=== PATIENT | female | born 1990 | race African-American/Black ===

== ENCOUNTER 2017-02-13 13:23 | Emergency (ER) | payer OTHER ==
[~2017-02-13] VITALS: Ht 180.3 cm; Wt 94.0 kg
[~2017-02-13 13:23] MED LIST: ALBU6.7H INH; AMOX500T PO; PRED20 PO; Z.0.NO CURRENT MEDS
[2017-02-13 13:25] VITALS: BP 140/84; PULSE 78; RESP 20; TEMP 97.5; O2SAT 98
--- NOTE | 2017-02-13 13:35 | PD ---
Physical Exam Time Seen by Provider: 13:31 Narrative 26 year old female here for evaluation after contaminated exposure. While working at [employer] her right index finger was puncture with a contaminated hollow bore needle. She reports she immediately milked the area & washed the finger. 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 Patient seen at triage desk. VS reviewed. Patient waiting bed placement. Data Data Last Documented VS Vital Signs Date Time Temp Pulse Resp B/P Pulse Ox O2 Delivery O2 Flow Rate FiO2 02/13/17 13:25 97.5 78 20 140/84 98 Room Air MDM Supervised Visit with ELEUTERIO: Marcela Storey Feb 13, 2017 13:35
--- NOTE | 2017-02-13 13:59 | PD ---
HPI . needle stick earlier today Chief Complaint: Exposure to Blood/Body Fluids Time Seen by Provider: 13:58 Travel History International Travel<30 days: No Contact w/Intl Traveler<30days: No Traveled to known affect area: No History of Present Illness HPI 26-year-old female with history of hypertension and borderline diabetes here after a needlestick earlier today while working at [employer] on a surgical case. Patient tells me that they were performing a lipoma removal on a patient , who the surgeon states is free of any known communicable disease and in good health. Patient tells me that she accidentally pricked her right index finger with a suture needle, specifically a 3-0 Vicryl. Patient says that blood initially did not come out of the site and had to be milked out. She reports immediately washing and cleaning the area. She didn't think much of it, but was told to come to the emergency department for further evaluation. Patient admits to being a hypochondriac and is considering taking postexposure prophylactic medications until she finds out the actual status of the source patient. [facility] Past Medical History Asthma: Yes Respiratory: Yes (asthma) ?: Not LMP: 02/11/17 : 1 Para: 1 : 0 Dilation and Curettage (D&C): No Past Surgical History Section: Yes Gynecologic Surgery: Yes Hysterectomy: Yes Social History Alcohol Use: No Tobacco Use: No Substance Use: No Allergies-Medications (Allergen,Severity, Reaction): Uncoded Allergies: SHELL FISH (Allergy, Intermediate, HIVES, 03/26/14) Reported Meds & Prescriptions Reported Meds & Active Scripts Active Kaletra (Lopinavir/Ritonavir) 200-50 Mg Tab 2 Tab PO Q12HR Fill this prescription for a 23 day supply of Kaletra ONLY if advised to do so by either [facility] OR the Emergency Department. Zidovudine 300 Mg Tab 300 Mg PO Q12HR 23 Days Lamivudine 150 Mg Tab 150 Mg PO BID 23 Days Kaletra (Lopinavir/Ritonavir) 200-50 Mg Tab 2 Tab PO Q12HR 5 Days Fill this 5 day prescription first & begin taking Kaletra 12 hours after the first dose received in the Emergency Department as prescribed. Zidovudine 100 Mg Cap 300 Mg PO Q12HR 5 Days Lamivudine 150 Mg Tab 150 Mg PO BID 5 Days Review of Systems General / Constitutional: No: Fever Eyes: No: Visual changes HENT: No: Headaches Cardiovascular: No: Chest Pain or Discomfort Respiratory: No: Shortness of Breath Gastrointestinal: No: Abdominal Pain Genitourinary: No: Dysuria Musculoskeletal: No: Pain Skin: No Rash Neurologic: No: Weakness Psychiatric: No: Depression Endocrine: No: Polydipsia Hematologic/Lymphatic: No: Easy Bruising Physical Exam Narrative GENERAL: AAO x 3, no acute distress, Well-nourished, well-developed patient. SKIN: Warm and dry. No visible rashes or bruising. HEAD: Normocephalic and atraumatic. EYES: No scleral icterus. No injection or drainage. EOM intact, PERRLA ENT: No nasal drainage noted. Mucous membranes pink. Airway patent. NECK: Supple, trachea midline. No JVD. CARDIOVASCULAR: Regular rate and rhythm without murmurs, gallops, or rubs. RESPIRATORY: Breath sounds equal bilaterally. No accessory muscle use. No rhonchi or rales. GASTROINTESTINAL: Abdomen soft, non-tender, nondistended. EXTREMITIES: No cyanosis or edema. BACK: Nontender without obvious deformity. No CVA tenderness. NEURO: CN II-12 intact, materials management supervisor strength normal b/l, UE and LE 5/5, no focal deficits PSYCH: AAO x 3, normal affect. Data Data Last Documented VS Vital Signs Date Time Temp Pulse Resp B/P Pulse Ox O2 Delivery O2 Flow Rate FiO2 02/13/17 13:25 97.5 78 20 140/84 98 Room Air Orders Lamivudine (Epivir) (02/13/17 15:00) Zidovudine (Retrovir) (02/13/17 15:00) Lopinavir-Ritonavir 200-50 Mg (Kaletra 2 (02/13/17 15:00) MDM Medical Decision Making Medical Screen Exam Complete: Yes Emergency Medical Condition: Yes Medical Record Reviewed: Yes Differential Diagnosis needle stick, PEP, HIV exposure, HEP exposure Narrative Course 26 year old female here to discuss needlestick and postexposure prophylactic medication. I have had a prolonged discussion with this patient regarding these medications. My recommendation is that she does not proceed with prophylactic medication at this time. I recommend that she wait for results as based off history she is providing, it seems source patient carries low risk. Patient has decided that she wants the first dose of medications here in the ED. I have verified with her and she agrees to receiving first doses here in the ED. I have also prepared all of the required prescriptions. Case has been discussed with Dr. Ortiz. Charge nurse was also notified. Diagnosis Primary Impression: Needlestick injury accident Qualified Code: W27.3XXA - Needlestick injury accident, initial encounter Referrals: [facility] Patient Instructions: Postexposure Prophylaxis (ED), General Instructions Additional Instructions: [facility] will contact you for further recommendations. If you do not hear from them, please call them. Med/Other Pt SpecificInfo: Prescription(s) given Scripts Lopinavir-Ritonavir (Kaletra)200-50 Mg Tab2 Tab PO Q12HR #92 TAB Ref 0 Fill this prescription for a 23 day supply of Kaletra ONLY if advised to do so by either [facility] OR the Emergency Department. Prov:Salina Ortiz MD 02/13/17 Zidovudine 300 Mg [id number] Mg PO Q12HR 23 Days Prov:Salina Ortiz MD 02/13/17 Lamivudine 150 Mg [id number] Mg PO BID 23 Days Ref 0 Prov:Salina Ortiz MD 02/13/17 Lopinavir-Ritonavir (Kaletra)200-50 Mg Tab2 Tab PO Q12HR 5 Days Ref 0 Fill this 5 day prescription first & begin taking Kaletra 12 hours after the first dose received in the Emergency Department as prescribed. Prov:Salina Ortiz MD 02/13/17 Zidovudine 100 Mg [id number] Mg PO Q12HR 5 Days Ref 0 Prov:Salina Ortiz MD 02/13/17 Lamivudine 150 Mg [id number] Mg PO BID 5 Days Ref 0 Prov:Salina Ortiz MD 02/13/17 Disposition: 01 DISCHARGE HOME Condition: Stable Shani Jacob Feb 13, 2017 13:58
[2017-02-13] MEDS ORDERED: ZIDO100C4 PO (14:56)
[2017-02-13] MEDS ORDERED: LAMI1TAB7 PO (14:56)
[2017-02-13] MEDS ORDERED: KALETRA200 PO (14:56)
[2017-02-13] MEDS ORDERED: ZIDO300T2 PO (14:56)
[2017-02-13] MEDS ORDERED: LOPINAVIR/RITONAVIR 200 MG/50 MG TAB PO ONE (15:00)
[2017-02-13] MEDS ORDERED: ZIDOVUDINE 100 MG CAP PO ONE (15:00)
== END 2017-02-13 15:58 | disposition home or self-care (01) ==
LOC: NEPD 13:23
DX: S61.230A Puncture wound without foreign body of right index finger without damage to nail, initial encounter (principal); W46.1XXA Contact with contaminated hypodermic needle, initial encounter; Y93.F9 Activity, other caregiving; Y92.234 Operating room of hospital as the place of occurrence of the external cause
CPT/HCPCS: 99284

== ENCOUNTER → 2018-01-20 | Outpatient (CLI) | payer MEDICAID ==
[~2018-01-20] MED LIST changes: -ALBU6.7H INH; -AMOX500T PO; +KALETRA200 PO; +LAMI1TAB7 PO; -PRED20 PO; -Z.0.NO CURRENT MEDS; +ZIDO100C4 PO; +ZIDO300T2 PO
[2018-01-23 03:50] LABS: VARICELLA ZOSTER AB IGM 1.27 (NEGATIVE)
== END ==
LOC: ELAB 09:20
PROVIDERS: ATTEND Family Medicine
DX: Z13.9 Encounter for screening, unspecified (principal)
CPT/HCPCS: 36415; 86787